=== PATIENT | female | born 1965 | race Caucasian/White ===

== ENCOUNTER → 2023-09-24 14:45 | Outpatient (REF) | payer OTHER, SELFPAY | LOC: WDC 14:45 | PROVIDERS: ATTENDING PHYSICIAN Family Medicine | DX: Z12.31 Encounter for screening mammogram for malignant neoplasm of breast (principal) | CPT/HCPCS: 77063; 77067 ==

== ENCOUNTER → 2023-12-23 08:03 | Outpatient (REF) | payer OTHER, SELFPAY | LOC: DHCBC/DCA 08:03 | PROVIDERS: ATTENDING PHYSICIAN Internal Medicine Interventional Cardiology; FAMILY PHYSICIAN Family Medicine | DX: R07.89 Other chest pain (principal); R06.09 Other forms of dyspnea; E78.2 Mixed hyperlipidemia | CPT/HCPCS: 78452; 93017; A9500; J2785 ==

== ENCOUNTER 2024-01-11 23:49 | Emergency (ER) | payer OTHER, SELFPAY ==
[2024-01-11 23:52] VITALS: BP 150/106
--- NOTE | 2024-01-12 00:26 | ED.GENMED ---
History of Present Illness
General
Chief Complaint: Nasal Problem
Source: patient and family (Father)
Exam Limitations: other (TBI)
Time Seen by Provider: 01/12/24 00:03
Nursing documentation reviewed up to this point in time: agreed with
Travel History
Have you had any contact with someone who has COVID-19?: No
Do you have any symptoms of coronavirus? Fever > 100 degrees, chills, cough, shortness of breath, sore throat, loss of taste or smell, muscle aches, or headache?: No
History of Present Illness
History of Present Illness:
58-year-old female with a past medical history of traumatic brain injury who presents with her father for evaluation of nosebleed and apparent fall. Patient is somewhat limited as a historian due to her history of TBI but she can answer basic
questions. Much of history is obtained from her father who is at bedside. He reports that maryight patient came into parents room with significant epistaxis 'covered in blood.' Parents noticed that patient's nose was swollen and that she had an
abrasion on the nose. When they went and checked on her room they found that there was significant blood in the bathroom, father believes she likely fell in the bathroom. Patient is not able to provide good history regarding fall. She says she
has pain in her nose. She denies any headache or neck pain. Denies any back pain. Denies chest or abdominal pain. Denies pain in her extremities. She is not on blood thinners.
Past History
Past History
ED Past Medical History: Other (TBI)
Social History
Tobacco: Non-smoker
Alcohol: None
Living: with family
Family History
Family History: Diabetes
Review of Systems
Review of Systems
All Other Systems: ROS reviewed and negative except as documented in HPI and ROS
EENT: Reports other (Epistaxis, no swelling)
Cardiac: Denies chest pain
ABD/GI: Denies abdominal pain
: Denies flank pain
Musculoskeletal: Denies joint pain, neck pain or back pain
Neurological: Denies headache
Phy Exam
Physical Exam
Physical Exam:
General: Awake, alert, not in distress
Head: Normocephalic, patient has swelling of the nasal bridge and tenderness along the nasal bridge, no obvious deformity; she has a minor abrasion to the nasal bridge; she has no septal hematoma; dried blood in the nares but no active bleeding
Eyes: Conjunctiva normal, EOMI, pupils equal round and reactive to light bilaterally
Throat: Airway intact, handling secretions; inner lip laceration upper lip, no loose teeth, no tongue trauma
Neck: Trachea midline, no cervical spine tenderness
Back: No signs of trauma to the back or flank and no tenderness of the thoracic or lumbar spine
Lungs: Breathing comfortably no distress
Heart: Regular rate and rhythm, no murmurs, gallops, or rubs; no rib tenderness
Abd: Soft, non distended, nontender
Neuro: Awake and alert, answering basic questions, at baseline per father
Skin: Minor abrasion to the nasal bridge
Extremities: Atraumatic, warm and well-perfused, no reproducible tenderness, allows for full passive range of motion in all joints of the upper and lower extremities without discomfort
Scores
Heart Failure Risk
Heart Failure Risk Score: Not Applicable
Heart Score for Chest Pain Patients
STEMI patient?: Not applicable
Withdrawal Assessment of Alcohol
Withdrawal Assessment Completed?: Not applicable
Course
Orders/Labs/Results
Orders:
Orders
01/12/24 00:25
CT Cervical Spine W/o Iv Contr Urgent
Comment:
Reason For Exam: fall with head strike
CT Facial Bones W/o Iv Contras Urgent
Comment:
Reason For Exam: fall with facial trauma
CT Head W/o Iv Contrast Urgent
Comment:
Reason For Exam: fall with headstrike
01/12/24 00:26
Tetanus/Diphth/Acelpertussis [Adacel] 0.5 ml IM .ONCE ONE
01/12/24 00:32
Electrocardiogram (*1) Urgent
Reason for Study: Syncope
EKG- Treatment ONCE
01/12/24 00:50
Acetaminophen [Tylenol] 650 mg PO NOW STA
Vital Signs
Initial and Last Documented VS:
Initial Vital Signs
Temp Pulse Resp BP Pulse Ox
36.2 C 88 26 150/106 98
01/11/24 23:52 01/11/24 23:52 01/11/24 23:52 01/11/24 23:52 01/11/24 23:52
Last Documented Vital Signs
Temp Pulse Resp BP Pulse Ox
36.2 C 88 20 153/73 98
01/11/24 23:52 01/12/24 00:55 01/12/24 00:55 01/12/24 00:55 01/12/24 00:55
Procedures
Laceration Closure
Upper Lip:
Status of Wound: clean
Size of Wound in cm: 1.5
Description of Wound Edges: ragged
Preparation: cleaned with soap & water
Anesthesia: 1% Lidocaine
Revision/Debridement: routine- no revision
Type of Closure: single layer closure
Skin Closure Material: 5-0 chromic gut
Number of sutures: 2
Additional information:
Inner lip laceration
Nose:
Status of Wound: clean
Size of Wound in cm: 0.5
Description of Wound Edges: sharp and surrounded by abrasion
Preparation: cleaned with saline
Revision/Debridement: routine- no revision
Type of Closure: Dermabond-skin glue (Dermabond applied over Steri-Strips)
Nosebleed
Drug treatment: Epinephrine
Treatment: local pressure applied
Post treatment bleeding: none- good control
MDM/Problems Addressed
Differential Diagnosis Includes:
Nasal fracture, facial bone fracture, must rule out traumatic head injury as well
MDM/Problems Addressed:
58-year-old female presents for evaluation of epistaxis and signs of trauma to the nose after apparently a fall�patient is a poor historian given her traumatic brain injury but father says it appears that she fell in the bathroom. She has pain in
the nose but denies any other complaints. She is not on blood thinners. Exam as above. Will check CT of the head and cervical spine, facial bones. Will check screening EKG as she is a poor historian regarding the fall. Will update tetanus.
Will monitor closely reassess after the above.
CT head and cervical spine negative for any acute pathology. CT of the facial bones shows nasal fracture. Patient has significant swelling of the nose, will refer for follow-up with ENT within the next 1 to 2 weeks for assessment for possible
fracture reduction once swelling improved. Will start on prophylactic antibiotic. Repaired inner lip laceration as it was gaping with 2 simple interrupted absorbable sutures. Applied Steri-Strips to minor nasal abrasion/laceration. Applied local
pressure and cotton gauze soaked with epinephrine to both nares for control of epistaxis. Stable for discharge. Spoke with patient and father about follow-up plan and return precautions. All questions answered.
Chronic conditions affecting care:
Traumatic brain injury
Acute Exacerbation and/or Progression of Chronic Illness:
Acutely hypertensive
Acute Exacerbation and/or Progression of Chronic Illness: HTN
*Radiology
Radiology exam reviewed: radiology read reviewed
*Pulse Oximetry
Patient hypoxic: no
*EKG
Interpreted by ED Provider?: Yes
Heart Rate: 71
Rate: normal
Rhythm: sinus
Hortense: normal axis
Interval: normal interval
QRS Pattern: normal QRS
Ischemia: no ischemia
*Critical Care Note
Total Time (30-74mins, 75-104mins- exclusive of procedures): Not Applicable
Data Reviewed
Source: patient and family (Father)
Patient Management
Social determinants of health affecting care: Strong social support
ED Attending Note
-
Portions of this chart may have been created with voice recognition software.� Occasional wrong word or��sound alike� substitutions may have occurred due to the inherent limitations of voice recognition software.
Discharge Plan
Departure
Patient Disposition: Home (Routine Discharge)
Date of Disposition: 01/12/24
Time of Disposition: 03:41
Patient with high blood pressure during this ER visit?: Yes
Discharge Problem:
Fracture, nasal, Epistaxis, Laceration of lip, Abrasion of nose
Instructions: Nose Fracture (DC), Nosebleeds (DC)
Prescriptions:
No Action
sertraline [Zoloft] 50 mg Tablet
50 mg PO DAILY
atorvastatin
20 mg PO DAILY
Referrals:
Reg Serrano MD [Active] - Call in 1-3 days for appt (ENT doctor)
UNKNOWN - PT DOES,NOT KNOW [Unknown Provider] -
Activity Restrictions/Additional Instructions:
DO NOT blow your nose for at least two weeks.
DO NOT forcibly spit for one week.
DO NOT smoke or use smokeless tobacco; smoking greatly inhibits the healing process, especially in the sinuses.
Sneeze with your MOUTH OPEN. If the urge to sneeze arises, do not sneeze through your nose and avoid pinching nostrils.
Drink without a straw for one week.
Avoid swimming for one month and strenuous exercise (e.g. heavy lifting) for one week.
Thank you for visiting the Emergency Department at [facility].
1. Please schedule a follow up appointment as directed. Call first thing tomorrow morning to make an appointment.
2. If indicated, please take your medications as instructed and indicated on discharge paperwork.
3. If any of your symptoms do not improve, or persist, or become more severe within 6-12 hours, please return to the emergency department for further care.
4. Please return to the emergency department if you develop a headache, neck pain/stiffness, fever greater than 100.4F, chest pain, shortness of breath, persistent nausea, vomiting, slurred speech, difficulty walking, numbness/tingling, weakness,
signs of infection or any other symptoms that are worrisome to you.
Please call [phone] if you have any questions.
Interventions
Interventions:
*General Assessment Last Done: 01/12/24 00:17
*Neglect/Abuse Screening Last Done: 01/12/24 00:17
ED- Fall Risk Assessment Last Done: 01/12/24 00:17
*ED COVID-19 Vaccine History Last Done: 01/12/24 00:17
ED-EENT Assessment Last Done: 01/12/24 00:17
ED-Musculoskeletal Assessment Last Done: 01/12/24 00:17
ED- Neurological Assessment Last Done: 01/12/24 00:17
ED-Skin Assessment Last Done: 01/12/24 00:17
Discharge Date and Time
Print Language: LITHUANIAN
[2024-01-12] MEDS: ADACEL 0.5 ML IM (00:40)
[2024-01-12] MEDS: TYLENOL 650 MG PO (00:53)
[2024-01-12 00:55] VITALS: BP 153/73
--- NOTE | 2024-01-12 03:45 | DOWNTIME ---
There was a [employer] Downtime on 12/07/2023 from 0100 to 12/08/2023 at 0338. Downtime documentation of patient's care, including medication administrations, has been reconciled in the electronic record per guidelines. Refer to the
patient's paper chart under the miscellaneous tab to see printed paper medication records and downtime forms.
== END 2024-01-12 01:55 | disposition home or self-care (01) ==
LOC: EMR 23:49
PROVIDERS: EMERGENCY PHYSICIAN Emergency Medicine; FAMILY PHYSICIAN Family Medicine
DX: S02.2XXA Fracture of nasal bones, initial encounter for closed fracture (principal); R04.0 Epistaxis; S01.511A Laceration without foreign body of lip, initial encounter; W19.XXXA Unspecified fall, initial encounter; Z23 Encounter for immunization; I10 Essential (primary) hypertension; Z83.3 Family history of diabetes mellitus
CPT/HCPCS: 99284; 12011; 90471; 70450; 70486; 72125; 90715; 93005

== ENCOUNTER → 2024-01-14 08:37 | Outpatient (REF) | payer OTHER, SELFPAY | LOC: RCS 08:37 | PROVIDERS: ATTENDING PHYSICIAN Internal Medicine Interventional Cardiology; FAMILY PHYSICIAN Family Medicine | DX: R07.89 Other chest pain (principal); R06.09 Other forms of dyspnea; E78.2 Mixed hyperlipidemia | CPT/HCPCS: 93306 ==

== ENCOUNTER → 2024-03-10 09:43 | Outpatient (REF) | payer OTHER, SELFPAY | LOC: WDC 09:43 | PROVIDERS: ATTENDING PHYSICIAN Family Medicine | DX: R92.2 Inconclusive mammogram (principal) | CPT/HCPCS: 76641 ==

== ENCOUNTER → 2024-09-29 10:32 | Outpatient (REF) | payer OTHER, SELFPAY | LOC: WDC 10:32 | PROVIDERS: ATTENDING PHYSICIAN Family Medicine | DX: Z12.31 Encounter for screening mammogram for malignant neoplasm of breast (principal) | CPT/HCPCS: 77063; 77067 ==

== ENCOUNTER → 2024-10-13 14:15 | Outpatient (REF) | payer OTHER, SELFPAY | LOC: WDC 14:15 | PROVIDERS: ATTENDING PHYSICIAN Family Medicine | DX: R92.8 Other abnormal and inconclusive findings on diagnostic imaging of breast (principal) | CPT/HCPCS: 76642 ==

== ENCOUNTER → 2025-03-09 09:34 | Outpatient (REF) | payer OTHER, SELFPAY | LOC: WDC 09:34 | PROVIDERS: ATTENDING PHYSICIAN Family Medicine | DX: R92.30 Dense breasts, unspecified (principal) | CPT/HCPCS: 76641 ==